=== PATIENT | female | born 1950 | race Caucasian/White ===

== ENCOUNTER → 2017-10-30 | Outpatient (REF) | payer BC ==
[2017-10-30 19:03] LABS: REASON FOR REVIEW PLATELET MORPHOLOGY; SLIDE REVIEW Report; SOURCE PERIPHERAL SMEAR
[2017-10-30 19:55] LABS: VITAMIN B12 LEVEL 530 PG/ML (247-911)
[2017-10-30 20:01] LABS: BILIRUBIN,DIRECT 0.1 MG/DL (0.0-0.2)
[2017-10-30 20:01] LABS: FERRITIN 39 NG/ML (8-252); IRON (FE) 81 UG/DL (50-170); PERCENT SATURATION 23.8 % (13.2-45.0); TOTAL IRON BINDING CAPACITY 341 UG/DL (250-450)
[2017-11-03 00:08] LABS: SOLUBLE TRANSFERRIN RECEPTOR 19.9 nmol/L (12.2-27.3)
[2017-11-03 00:08] LABS: HOMOCYST(E)INE SERUM 14.8 umol/L (0.0-15.0); Methylmalonic Acid 162 nmol/L (0-378)
== END ==
LOC: M LAB REF 17:21
DX: D64.9 Anemia, unspecified (principal); D69.6 Thrombocytopenia, unspecified
CPT/HCPCS: 82248

== ENCOUNTER → 2024-11-24 | Outpatient (CLI) | payer MEDICARE, BC ==
[~2024-11-24] MED LIST: AMLO1TAB24 PO; ATOR1TAB19 PO; FERR325T3 PO; FURO20TA2 PO; GLIP5TAB17 PO; HYDR25TA87 PO; ICOS1CAP; JANU100T PO; LOSA50TA28; MAGN400T2 PO; METO100T5 PO; MOBI4TAB PO; POTA-149 PO; SYNT150T PO; TRAD5TAB; VALS1TAB67 PO
== END ==
LOC: M RAD 09:50
PROVIDERS: ATTEND Specialist
DX: K76.0 Fatty (change of) liver, not elsewhere classified (principal); R74.01 Elevation of levels of liver transaminase levels; Z90.49 Acquired absence of other specified parts of digestive tract